=== PATIENT | female | born 1990 | race Caucasian/White ===

== ENCOUNTER 2023-12-12 22:18 | Emergency (ER) | payer OTHER, SELFPAY ==
[2023-12-12 22:20] VITALS: BP 117/68; PULSE 73; RESP 18; TEMP 35.8; O2SAT 96
--- NOTE | 2023-12-12 22:24 | ED.SKABFB ---
HPI - Skin/Abscess/Foreign Bdy General Chief complaint: Skin/Abscess/Foreign Body Stated complaint: bite Time Seen by Provider: 12/12/23 22:24 Source: patient Mode of arrival: ambulatory Limitations: no limitations History of Present Illness HPI narrative: 33-year-old female presents to the ED with -- cellulitis/ boil over the left mandibular region the past 4 days. Severe pain. No drainage. Unsure as to how she got it. No fever or chills. Denied blood test MD complaint: abscess/boil Onset (ago): day(s) ( 4 days) Tetanus up to date: unsure Location: face ( left mandibular region) Severity: severe Pain Consistency: constant Relieving factors: none Exacerbating factors: none Context: none Associated symptoms: denies other symptoms Treatments prior to arrival: none Related Data Allergies Allergy/AdvReac Type Severity Reaction Status Date / Time latex Allergy Rash Verified 12/12/23 22:37 sulfamethoxazole Allergy Rash Verified 12/12/23 22:37 [From Bactrim] trimethoprim [From Bactrim] Allergy Rash Verified 12/12/23 22:37 Review of Systems Review of Systems: All systems reviewed & are unremarkable except as noted in HPI and below Constitutional: Constitutional: Reports as per HPI and Reports no additional constitutional complaints Eyes: Eyes: Reports as per HPI and Reports no additional eye complaints ENT: Reports system reviewed and no additional complaints, except as documented and Reports as per HPI Cardiovascular: Cardiovascular: Reports as per HPI and Reports no additional cardiovascular complaints Respiratory: Respiratory: Reports as per HPI and Reports no additional respiratory complaints Gastrointestinal: Gastrointestinal: Reports as per HPI and Reports no additional gastrointestinal complaints Genitourinary: Genitourinary: Reports no additional female genitourinary complaints and Reports as per HPI Musculoskeletal: Musculoskeletal: Reports no additional musculoskeletal complaints and Reports as per HPI Integumentary/Breasts: Skin/Breast: Reports system reviewed and no additional complaints, except as docu Comments: left cheek/ left face cellulitis Neurologic: Reports system reviewed and no additional complaints, except as documented and Reports as per HPI Psychiatric: Psychiatric: Reports no additional psychiatric complaints and Reports as per HPI Endocrine: Endocrine: Reports no additional endocrine complaints and Reports as per HPI Hematologic/Lymphatic: Hematologic/Lymphatic: Reports no additional hematologic/lymphatic complaints and Reports as per HPI Allergic/Immunologic: Allergic/Immunologic: Reports no additional allergic/immunologic complaints and Reports as per HPI PMFSH Social History Social History (Updated 12/12/23 @ 22:39 by Shawn Denis MD) Social History: smoker, marijuana use Exam Narrative: vitals are stable patient is very drowsy. Patient stated that she is homeless and has not slept for the past 18 hours. Const: General: no acute distress Nutritional Appearance: obese Orientation/consciousness: patient oriented x3 HENMT: Head: normal to inspection Ears: external ears normal Face/Nose/Sinus: Normal external nose present Face and sinus: normal facial exam Mouth: Yes Normal oral and palatal mucosa present Throat: posterior oropharynx normal Eyes: Conjunctivae: conjunctivae normal Pupils: Equal, round and reactive pupils present EOM: EOMs intact bilaterally Direct Ophthalmoscopy: no photophobia Neck: Neck: normal visual inspection, no lymphadenopathy and no meningeal signs Chest: Chest palpation & inspection: normal inspection of the chest Resp: Effort & Inspection: normal respiratory effort Auscultation: clear to auscultation bilaterally Cardio: Rate: regular rate Rhythm: regular rhythm GI: GI Palp: Yes Soft to palpation Auscultation: normal bowel sounds Other: No tenderness/ rigidity /rebound. : General: Yes no CVA
[2023-12-12] MEDS: CLINDAMYCIN HCL 150 MG CAP 300 MG PO (22:43)
[2023-12-12] MEDS: TETANUS,DIPHTHERIA,AC PERTUSSIS ADULT 0.5 ML (ADACEL) IM (22:43)
[2023-12-12 22:55] VITALS: BP 120/72; PULSE 78; RESP 18; O2SAT 99
--- NOTE | 2023-12-17 18:37 | PC.NURSE ---
pt calls reporting she does not have her medical card to pick remover her rx at [facility] and they cannot run her insurance without it. pt reports she would like the rx called into the [facility] in [place]. this rn calls in rx for clindamycin hcl 300mg po q 8 hours #20, no refills under dr nails, and called christa to cancel the rx. pt is aware, and is to pick remover rx.
== END 2023-12-12 22:55 | disposition home or self-care (01) ==
LOC: CHSED 22:48
PROVIDERS: Emergency Provider Internal Medicine Critical Care Medicine
DX: L03.211 Cellulitis of face (principal); Z23 Encounter for immunization
CPT/HCPCS: 90471; 90715; 99283; A9270

== ENCOUNTER 2024-01-30 02:02 | Emergency (ER) | payer OTHER, SELFPAY ==
[2024-01-30] VITALS (7 sets, daily range): BP systolic 106–121; BP diastolic 61–71; PULSE 52–72; RESP 10–14; TEMP 36.6–37; O2SAT 96–100
--- NOTE | ~2024-01-30 | XR_ITS ---
Left Hand Technique: PA, oblique, and lateral views were obtained. Clinical History: Fifth digit injury Findings: No acute fracture or dislocation is seen. Osseous alignment is anatomic. Joint spaces are p reserved. Soft tissues are unremarkable. Impression: Unremarkable left hand. Reviewed, dictated and finalized at location . Impression: Unremarkable left hand.
--- NOTE | ~2024-01-30 | CT_ITS ---
Clinical Indication: Injury CT Scan of the Chest, Abdomen, and Pelvis with Contrast: Technique: Contiguous sections were acquired throughout the chest, abdomen, and pelvis after intraven ous administration of 100 cc of Omnipaque 350. Dose reduction technique was used on this scan by aissatou nguyen automated exposure control and iterative reconstruction technique. The dose-length product (DL P) was 1637.36 mGy-cm. Findings: There is no evidence of any significant mediastinal, hilar or axillary lymphadenopathy. The mediastin al soft tissues appear normal. There is no evidence of pleural or pericardial effusion. The lungs are clear, aside from mild dependent hypoventilatory changes. The liver, spleen, pancreas, adrenals and kidneys are within normal limits.. Cholecystectomy clips ar e present. No evidence of aortic aneurysm. No lymphadenopathy. No bowel obstruction or bowel wall thickening. There is no evidence to suggest acute appendicitis. Urinary bladder is unremarkable. No pelvic mass seen. Status post hysterectomy. No ascites. No acute fracture evident. Impression: No significant abnormalities seen. Reviewed, dictated and finalized at [facility]. Impression: No significant abnormalities seen.
--- NOTE | ~2024-01-30 | CT_ITS ---
Non-contrast Head CT History: Injury Technique: Axial non-contrast imaging of the brain was performed. Dose reduction technique was used on this scan by utilizing automated exposure control and iterative reconstruction technique. The dose -length product (DLP) was 681.00 mGy-cm. Findings: There is no evidence of intracranial hemorrhage, mass lesion, or acute infarct. Brain par enchyma appears normal. The ventricles and subarachnoid spaces are normal in size. The calvarium ap pears normal. The visualized paranasal sinuses and mastoid air cells are clear. Impression: No significant abnormality seen. Reviewed, dictated and finalized at location . Impression: No significant abnormality seen.
--- NOTE | ~2024-01-30 | CT_ITS ---
Noncontrast CT scan of the cervical spine Technique: Multiple contiguous axial [address] images of the cervical spine were obtained and rec onstructed in 2D sagittal and coronal planes on the acquisition scanner. Dose reduction technique was used on this scan by utilizing automated exposure control, adjustment of the mA and/or kV according to patient size. The dose-length product (DLP) was 429.09 mGy-cm. Clinical History: Pain Findings: No fractures or dislocations. Unremarkable visualized bony structures. The intervertebral disc spaces are preserved. No prevertebral soft tissue swelling. Impression: No fracture or subluxation of the cervical spine. Reviewed, dictated and finalized at location M. Impression: No fracture or subluxation of the cervical spine.
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
[2024-01-30 02:47] LABS: Hematocrit 41.7 % (35.0-49.0); Hemoglobin 13.1 g/dL (12.0-15.0); Mean Corpuscular HGB Conc 31.4 g/dL (32-36); Mean Corpuscular Hemoglobin 29.5 pg (27.0-31.0); Mean Corpuscular Volume 93.9 fL (78.0-102.0); Mean Platelet Volume 9.7 fl (9.2-11.8); Platelet Count Result 342 K/mm3 (150-420); Red Blood Count 4.44 M/mm3 (4.20-5.40); Red Cell Distribution Width 13.4 % (11.6-14.4); White Blood Count 7.5 K/mm3 (4.8-10.8)
[2024-01-30 03:00] LABS: Alanine Aminotransferase 24 U/L (14-59); Albumin Level 3.2 g/dL (3.4-5.0); Alkaline Phosphatase 62 U/L (46-116); Anion Gap 3 mmol/L (4-12); Aspartate Amino Transferase 15 U/L (15-37); Bilirubin,Total 0.3 mg/dL (0.00-1.00); Blood Urea Nitrogen 20 mg/dL (7-18); Carbon Dioxide 34 mmol/L (21-32); Chloride 102 mmol/L (98-108); Estimated CRCL calculation 119 ml/min; Estimated Glomerular Filt Rate > 60; Glucose 87 mg/dL (70-99); Osmolality Calculated 289 mOsm/kg (285-295); Potassium 3.8 mmol/L (3.5-5.1); Sodium 139 mmol/L (136-145); Total Protein 7.1 g/dL (6.4-8.2)
[2024-01-30] MEDS: SODIUM CHLORIDE 0.9% IV 1,000 ML 999 ML IV CONT (03:00)
[2024-01-30 03:01] LABS: Ethanol < 3 mg/dL (0-6)
[2024-01-30 03:02] LABS: Troponin I < 4.0 ng/L (0.00-60.4)
[2024-01-30 03:03] LABS: INR 0.9; Prothrombin Time 10.3 Seconds (9.50-12.1)
--- NOTE | 2024-01-30 03:05 | ECG_ITS ---
Test Date: 2024-01-30 03:09:54 Measurements Intervals [place] Rate: 54 P: -3 TX: 172 QRS: 84 QRSD: 114 T: 63 QT: 471 QTc: 447 Interpretive Statements SINUS BRADYCARDIA MODERATE INTRAVENTRICULAR CONDUCTION DELAY [110+ ms QRS DURATION] ABNORMAL ECG No previous ECG available for comparison Electronically Signed On 01-30-2024 13:52:36 CDT by Abbe Bolanos M.D.
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
[2024-01-30] MEDS: TETANUS,DIPHTHERIA,AC PERTUSSIS ADULT 0.5 ML (ADACEL) IM (04:15)
--- NOTE | 2024-01-30 04:39 | PC.NURSE ---
Per ERP request, got pt up to walk. She walked fine. Stated that she was a little dizzy.
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
--- NOTE | 2024-01-30 12:16 | PC.NURSE ---
per doctor jaqui pt is to follow up with ortho or her family physician attempted to contact pt x 2 pts phone not accepting calls
--- NOTE | 2024-01-30 12:26 | PC.NURSE ---
left message with pts father to call back to ER
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
== END 2024-01-30 05:00 | disposition home or self-care (01) ==
PROVIDERS: Emergency Provider Emergency Medicine
DX: T14.90XA Injury, unspecified, initial encounter (principal); Z59.00 Homelessness unspecified; Z23 Encounter for immunization; V03.90XA Pedestrian on foot injured in collision with car, pick-up truck or van, unspecified whether traffic or nontraffic accident, initial encounter
CPT/HCPCS: 36415; 70450; 71260; 72125; 73080; 73130; 74177; 80053; 80307; 84484; 85027; 85610; 85730; 90471; 90715; 93005; 96360; 99284; J7030; L0150; Q9967

== ENCOUNTER 2024-03-08 21:21 | Emergency (ER) | payer OTHER, SELFPAY ==
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
[2024-03-08 21:23] VITALS: BP 153/94; PULSE 84; RESP 18; TEMP 36.9; O2SAT 100
--- NOTE | 2024-03-08 21:30 | PC.NURSE ---
Dr Tam at the bedside
[2024-03-08] MEDS: KETOROLAC (*BKC) 60 MG/2 ML VIAL IM (21:36)
--- NOTE | 2024-03-08 21:40 | PC.NURSE ---
patient transported to ct via stretcher. warm blanket was given
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
--- NOTE | 2024-03-08 22:02 | PC.NURSE ---
patient returned to room from ct via stretcher
[2024-03-08 22:30] VITALS: BP 140/88; PULSE 82; RESP 18; O2SAT 100
== END 2024-03-08 22:30 | disposition home or self-care (01) ==
PROVIDERS: Emergency Provider Emergency Medicine
DX: M54.32 Sciatica, left side (principal); S16.1XXA Strain of muscle, fascia and tendon at neck level, initial encounter; Y04.2XXA Assault by strike against or bumped into by another person, initial encounter
CPT/HCPCS: 70450; 72125; 72128; 72131; 96372; 99284; J1885

== ENCOUNTER 2024-07-31 22:03 | Emergency (ER) | payer OTHER, SELFPAY ==
--- NOTE | ~2024-07-31 | XR_ITS ---
EXAM: XR finger 4th LT min 2V DATE: 07/31/2024 22:36 HISTORY: LEFT 4TH DIGIT SMASH injury WITH BLISTER FORMATION . COMPARISON: 01/30/2024. FINDINGS: Normal mineralization. No fracture or dislocation. No lytic or blastic lesion. Minimal sca ttered degenerative changes. No erosion or periosteal change. Soft tissue swelling over the left four th digit, particularly over the DIP and nailbed, without subcutaneous gas or radiopaque foreign body. IMPRESSION: No acute osseous finding in the left hand. Marked soft tissue swelling over the left digi t. Reviewed, dictated and finalized at location K. IMPRESSION: No acute osseous finding in the left hand. Marked soft tissue swell ing over the left digit.
[2024-07-31 22:09] VITALS: BP 128/74; PULSE 70; RESP 18; TEMP 36.6; O2SAT 98
--- OUTSIDE RECORDS SUMMARY | 2024-07-31 22:09 | XMS_ITS | Clinical Summary ---
Author Organization [facility] Address [address] [place] [address] Phone Care Team Providers Care Wage And Salary Administrator Name Role Phone Provider, Unknown Primary Care Provider Unavaila ble Allergies Active Allergy Reactions Criticality Noted Date Comments Sulfamethoxazole-Trimethoprim Hives 2017 Latex Hives 02/06/2018 Medications buPROPion (WELLBUTRIN) 100 MG Tablet 01/26/2018 Active buPROPion (WELLBUTRIN) 150 MG XL tablet 01/26/2018 Active clonazePAM (KLONOPIN) 1 MG Tablet 3 01/26/2018 Active cyclobenzaprine (FLEXERIL) 10 MG Tablet 02/01/2018 Active FLUoxetine (PROZAC) 20 MG Capsule 12/27/2017 Active gabapentin (NEURONTIN) 300 MG Capsule 01/11/2018 Active HYDROcodone-acet aminophen (NORCO) 5-325 MG Tablet 0 02/01/2018 Active prazosin (MINIPRESS) 1 MG Capsule 12/27/2017 Active RaNITIdine HCl 300 MG Capsule Take by mouth 2 times daily. Active Social History Tobacco Use Types Packs/Day Years Used Date Smoking Tobacco: Every Day Cigarettes Smokeless Tobacco: Never Alcohol Use Standard Drinks/Week Comments No 0 (1 standard drink = 0.6 oz pur e alcohol) Comments No Sex and Gender Information Value Date Recorded Sex Assigned at Not on file Legal Sex Female 3:56 PM CDT Gender Identity Not on file Sexual Orientation Not on file Last Filed Vital Signs Vital Sign Reading Time Taken Comments Blood Pressure 128/92 02/06/2018 1:11 PM CDT Pulse 84 02/06/2018 1:11 PM CDT Temperature - - Respiratory Rate 20 02/06/2018 1:11 PM CDT Oxygen Saturation 97% 02/06/2018 1:11 PM CDT Inhaled Oxygen Concentration - - Weight 146.5 kg (323 lb) 02/06/2018 1:11 PM CDT Height 167.6 cm (5' 6 ) 02/06/2018 1:11 PM CDT Body Mass Index 52.13 02/06/2018 1:11 PM CDT Plan of Treatment Health Maintenance Due Date Last Done Comments Hepatitis C Virus (HCV) Screening 1990 Influenza Immunization (#1) 2023 SARS-COV-2 Immunization ( season) 2023 Respiratory Syncytial Virus (RSV) Immunization (Adult) (1 - 1-dose 75+ series) 2065 Hepatitis B Immunization Completed 999, 12/29/1997, 12/01/1997 DTaP/Tdap/Td Immunization Discontinued 2013, 11/08/2004, 10/30/1994, Additional history exists TdaP Immunization Completed 09/10/2013 Meningococcal Immunization (ACWY) Aged Out No longer eligible based on patient's age to complete this topic Pneumococcal Immunization Combined Aged Out No longer eligible based on patient's age to complete this topic Rotavirus Immunization Aged Out No lo nger eligible based on patient's age to complete this topic Insurance MEDICAID AETNA [facility] Care Teams Wage And Salary Administrator Relationship Specialty Start Date End Date Provider, Unknown UNKNOWN PCP - General 02/06/18
--- NOTE | 2024-07-31 22:17 | ED_ITS ---
HPI - Extremity Injury (Upper) General Chief Complaint: Extremity Injury, Upper Stated Complaint: wound Time Seen by Provider: 07/31/24 22:17 Source: patient Mode of arrival: ambulatory Limitations: no limitations History of Present Illness HPI narrative: this is a 34-year-old female who presents with injury to her left 4th finger while changing a tire and has a a blood blister on the all left 4th finger has tenderness and limited range of motion secondary to swelling. complaint: injury to: left Onset (ago): hour(s) Other Extremity Injury: Left: fingers ( 4th finger with injury and a blister) Handedness: right Place: outdoors Severity: moderate Severity scale (1-10): 6 Related Data Allergies Allergy/AdvReac Type Severity Reaction Status Date / Time latex Allergy Rash Verified 07/31/24 22:58 sulfamethoxazole (From Allergy Rash Verified 07/31/24 22:58 Bactrim) trimethoprim (From Bactrim) Allergy Rash Verified 07/31/24 22:58 Review of Systems Review of Systems: All systems reviewed & are unremarkable except as noted in HPI and below PMFSH Past Medical History Medical History Sciatica of left side Social History Social History Social History: smoker, marijuana use Exam Const: General: healthy appearing and no acute distress Nutritional Appearance: well nourished and obese Orientation/consciousness: patient oriented x3 Limitations: no limitations Chest: Chest palpation & inspection: normal inspection of the chest Resp: Effort & Inspection: normal respiratory effort Auscultation: clear to auscultation bilaterally Cardio: Rate: regular rate Rhythm: regular rhythm GI: GI Palp: Yes Soft to palpation Skin: Wounds: wounds noted Neuro: General: patient oriented x3 Extrem: Other: Tenderness and a blood blister on the 4th left finger Course Course Emergency Course: patient received Motrin 800mg p.o., and x-ray performed and reviewed patient. Vital Signs Vital signs: Vital Signs Temperature 36.6 C 07/31/24 22:09 Pulse Rate 70 07/31/24 22:09 Respiratory Rate 18 07/31/24 22:09 Blood Pressure 128/74 07/31/24 22:09 Pulse Oximetry 98 07/31/24 22:09 Oxygen Delivery Room Air 04/03/25 22:09 Temperature 36.6 C 07/31/24 22:09 Pulse Rate 70 07/31/24 22:09 Respiratory Rate 18 07/31/24 22:09 Blood Pressure 128/74 07/31/24 22:09 Pulse Oximetry 98 07/31/24 22:09 Oxygen Delivery Room Air 07/31/24 22:09 Critical Care Time Critical Care Time Critical Care Time: No Discharge Plan Discharge Clinical Impression: Finger sprain, Blister Patient Disposition: Home, Self-Care Condition: Stable Instructions: Antibiotic Form Additional Instructions: advised to take Tylenol or Motrin as needed and follow with primary if symptoms persist or worsen. Patient Language: Croatian Prescriptions: No Action tramadol 50 mg tablet 50 mg PO Q6H PRN (Reason: pain) Qty: 20 0RF Follow-up/Referrals: UNKNOWN,DOCTOR [Non-Staff] - Time of Disposition: 22:56
[2024-07-31] MEDS: IBUPROFEN 400 MG TABLET 800 MG PO (22:36)
--- OUTSIDE RECORDS SUMMARY | 2024-07-31 22:45 | XMS_ITS | Encounter Summary ---
Author Organization [facility] Address [facility] [place] [address] Care Team Providers Care Zipper Lining Folder Name Role Phone Merle Diaz NP Primary Care Provider +1- [phone] Encounter Details Date Type Department Care Team (Late st Contact Info) Description 07/14/2020 Hospital Follow-up Call [place] [address] [place] [address] Opal Mendoza RN Social History Tobacco Use Types Packs/Day Years Used Date Smoking Tobacco: Every Day Cigarettes 0.5 20 Smokeless Tobacco: Never Alcohol Use Standard Drinks/Week Comments No 0 (1 standard drink = 0.6 oz pure alcohol) patient denies current alcohol use 08/30/18 Humiliation, Afraid, Rape, and Kick questionnair e Answer Date Recorded Fear of Current or Ex-Partner No Emotionally Abused No 06/21/2019 Physically Abused No 06/21/2019 Sexually Abused No 06/21/2019 Social Connection and Isolat ion Panel [NHANES] Answer Date Recorded Frequency of Communication w ith Friends and Family More than three times a week 06/21/2019 Frequency of Social Gatherin gs with Friends and Family Three times a week 06/21/2019 Attends [employer] Services Never 06/21 Active Member of Clubs or Organizations No 06/21/2019 Attends Club or Organization Meetings Never 06/21/2019 Marital Status 06/21/2019 AUDIT-C Answer Date Recorded Frequency of Alcohol Consumption Never 08/30/2018 Average Number of Drinks Not on file 019 Frequency of Binge Drinking Not on file 06/2018 Overall Financial Resource Strain (CARDIA) Answe r Date Recorded Difficulty of Paying Living Expenses Somewhat fonseca rd 06/21/2019 [facility] [place] of Occupat ional Health - Occupational Stress Questionnaire Answer Date Recorded Feeling of Stress Rather much 06/21/2019 Exercise Vital Sign Answer Date Recorde d Days of Exercise per Week 0 days 2019 Minutes of Exercise per Session 0 min 06/21/2019 Hunger Vital Sign Answer Date Recorded Worried About Running Out of Food in the Last Ye ar Never true 06/21/2019 Ran Out of Food in the Last Year Never true 06/21/2019 PRAPARE - Transportation Answer Date Re corded Lack of Transportation (Medical) No 06/21/2019 Lack of Transportation (Non-Medical) No 06/21/2019 Education Answer Date Recorded What is the highest level of school you have completed or the highest degree you have received? 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 No / Unsure 07/12/2020 8:18 PM CDT documented as of this encounter Functional Status * RETIRED Are you deaf or do you have serious difficulty hearing Answer Date of Assessment Author Status No 07/13/2020 12:05 AM CDT Acti ve * RETIRED Are you blind or do you have serious difficulty seeing, even when wearing glasses? Answer Date of Assessment Author Status No 07/13/2020 12:05 AM CDT Acti ve * Do you have serious difficulty walking or climbing stairs? Answer Date of Assessment Author Status No 07/13/2020 12:05 AM CDT Jocelin Fox RN Active * Do you have difficulty dressing or bathing? Answer Date of Assessment Author Status No 07/13/2020 12:05 AM LARAT Jocelin Fox RN Active * Because of a physical, mental, or emotional condition, do you have difficulty doing errands alone such as visiting a doctor's office or shopping? Answer Date of Assessment Author Status No 07/13/2020 12:05 AM LARAT Jocelin Fox RN Active documented as of this encounter Mental Status * Because of a physical, mental, or emotional condition, do you have serious difficulty concentrating, remembering, or making decisions? Answer Entry Date Author Status No 07/13/2020 12:05 AM CDT Jocelin Fox RN Active documented in this encounter Plan of Treatment Not on file documented as of this encounter Goals Goal Patient Goal Type Associated Problems Recent Progress Patient-Stated? Author Family - family caregiver with be involved in care transitions and discharge planning General On track( 021 10:46 AM CDT) No Ana Fajardo RN documented as of this encounter Visit Diagnoses Not on filedocumented in this encounter Care Teams Zipper Lining Folder Relationship Specialty Start Date End Date Merle Diaz NP PCP - General Nurse Practitioner Family 03/05/20 documented as of this encounter
--- OUTSIDE RECORDS SUMMARY | 2024-07-31 22:45 | XMS_ITS | Encounter Summary ---
Author Organization [facility] Address [facility] [place] [address] Care Team Providers Care Gis Administrator Name Role Phone Merle Diaz NP Primary Care Provider [phone]- [phone] Encounter Details Date Type Department Care Team (Late st Contact Info) Description 03/08/2020 Hospital Follow-up Call [facility] [address] [place] [address] Opal Mendoza RN Social History [...] Family Three times a week 06/21/2019 Attends [facility] Never 06/21 Active Member of Clubs [...] Paying Living Expenses Somewhat fonseca rd 06/21/2019 [facility] [place] of Occupat ional Health - Occupational Stress [...] AM CDT Legal Sex Female 9:22 PM INDUSTRIAL TECHNOLOGY EDUCATION TEACHER Gender Identity Female 08/29/2018 9:19 AM CDT Sexual Orientation Not on file COVID-19 Exposure Response Date Recorded In the last month, have you been in contact with someone who was confirmed or suspected to have Coronavirus / COVID-19? No / Unsure 03/05/2020 12:24 AM INDUSTRIAL TECHNOLOGY EDUCATION TEACHER documented as of this encounter Functional Status * RETIRED Are you deaf or do you have serious difficulty hearing Answer Date of Assessment Author Status No 03/05/2020 5:00 AM INDUSTRIAL TECHNOLOGY EDUCATION TEACHER Activ e * RETIRED Are you blind or do you have serious difficulty seeing, even when wearing glasses? Answer Date of Assessment Author Status No 03/05/2020 5:00 AM INDUSTRIAL TECHNOLOGY EDUCATION TEACHER Activ e * Do you have serious difficulty walking or climbing stairs? Answer Date of Assessment Author Status No 03/05/2020 5:00 AM INDUSTRIAL TECHNOLOGY EDUCATION TEACHER Cherise Cardenas RN Active * Do you have difficulty dressing or bathing? Answer Date of Assessment Author Status No 03/05/2020 5:00 AM Cherise Vásquez RN Active * Because of a physical, mental, or emotional condition, do you have difficulty doing errands alone such as visiting a doctor's office or shopping? Answer Date of Assessment Author Status No 03/05/2020 5:00 AM Cherise Vásquez RN Active documented as of this encounter Mental Status * Because of a physical, mental, or emotional condition, do you have serious difficulty concentrating, remembering, or making decisions? Answer Entry Date Author Status No 03/05/2020 5:00 AM Cherise Vásquez RN Active documented in this encounter Plan of Treatment Not on file documented as of this encounter Visit Diagnoses Not on filedocumented in this encounter Care Teams Gis Administrator Relationship Specialty Start Date End Date Merle Diaz NP PCP - General Nurse Practitioner Family 03/05/20 documented as of this encounter
--- OUTSIDE RECORDS SUMMARY | 2024-07-31 22:45 | XMS_ITS | Clinical Summary ---
Author Organization [facility] Address [facility] [place] [address] Care Team Providers Care Customer Service Clerk Name Role Phone Merle Diaz NP Primary Care Provider [phone]- [phone] Allergies Active Allergy Reactions Criticality Noted Date Comments Latex Hives,Rash Low 12/26/2020 Pecan Nut (Diagnostic) Throat swelling High 12/27/19 21 Sulfamethoxazole-Trimethoprim Hives Medium 2020 Trimethoprim Hives Medium 12/26/2020 [place] ([place]) Throat swelling High 12/26/2020 Medications clonazePAM 1 MG tablet Take 1 mg by mouth 3 (three) times a day. Active buPROPion XL 300 MG 24 hr tablet 04/01/2021 Active prazosin 2 MG capsule Take 4 mg by mouth nightly at bedtime. 04/01/2021 Active Active Problems Problem Noted Date Diagnosed Date Fecal impaction ([facility]) 03/05/2020 Carpal tunnel syndrome, bilateral upper limbs Constipation 06/21/2019 Chronic GERD 01/23/2019 Blood in stool 01/23/2019 Oropharyngeal dysphagia 01/23/2019 Hidradenitis suppurativa 09/24/2018 Asthma ([facility]) 08/29/2018 History of GI bleed 08/29/2018 Psoriasis 08/29/2018 Anemia 08/29/2018 Anxiety and depression 08/29/2018 Hyperactivity disorder 08/29/2018 Bipolar disorder ([facility]) 08/29/2018 Body image disturbance 08/29/2018 Schizophrenia ([facility]) 08/29/2018 History of suicidal ideation 08/29/2018 Resolved Problems Problem Noted Date Diagnosed Date Resolved Date Encounter for screening colonoscopy 06/11/2019 06/19/2019 Overview (06/11/2019): Added automatically from request for surgery [id number] Chronic bacterial skin infection 08/30/2018 10/02/2018 Right foot pain 12/07/2016 08/29/2018 Encounter for preventive health examination 12/06/2016 08/29/2018 Immunizations Name Administration Dates Next Due Afluria 36 MONTHS+ (Prefille d Syringe IIV4) 06/24/2019,06/22/2019() Dtp 10/30/1994, 3,09/30/1991, 991,1990 Fluzone 6 Months+ Quad (0.5 mL Prefilled Syringe) 03/06/2020 HPV4 (Gardasil) 07/07/2008,05/07/2008 Hepatitis A (Generic) 07/07/2008 Hepatitis B Pediatric 06/22/1998,12/29/1997,07/1997 Hib 11/02/1992,09/30/1991,01/03/1991 MMR 10/30/1994,09/30/1991 Opv 10/30/1994, 3,09/30/1991, 991,1990 Td 11/08/2004 Tdap (Generic) 10/31/2020,05/06/2019,09/10/2013 Family History Medical History Relation Comments Cancer Father Diabetes Father Heart Disease Father Hypertension Father Hyperlipidemia Maternal Grandfather Hyperlipidemia Maternal Grandmother Diabetes Maternal Uncle Cancer Mother FMH of cancer Mother Heart Disease Mother Hypertension Mother Hyperlipidemia Paternal Grandfather Hyperlipidemia Paternal Grandmother Relation Status Comments Father Maternal Grandfather Maternal Grandmother Maternal Uncle Mother Paternal Grandfather Paternal Grandmother Social History Tobacco Use Types Packs/Day Years Used Date Smoking Tobacco: Every Day Cigarettes 0.5 20 Smokeless Tobacco: Never Tobacco Cessation:Ready to Q uit: No Alcohol Use Standard Drinks/Week Comments No 0 (1 standard drink = 0.6 oz pur e alcohol) Humiliation, Afraid, Rape, and Kick questionnair e [...] Family Three times a week 06/21/2019 Attends [employer] Services Never 06/21 Active Member of Clubs [...] Paying Living Expenses Somewhat fonseca rd 06/21/2019 [facility] [place] of Occupat ional Health - Occupational Stress [...] AM CDT 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 Gender Identity Female 08/29/2018 9:19 AM CDT Sexual Orientation Not on file Last Filed Vital Signs Vital Sign Reading Time Taken Comments Blood Pressure 118/74 05/05/2021 2:25 PM SUGAR TRUCKER Pulse 68 05/05/2021 2:25 PM SUGAR TRUCKER Temperature 37.4 C (99.3 F) 05/04/2021 10:46 PM SUGAR TRUCKER Respiratory Rate 19 05/05/2021 2:25 PM SUGAR TRUCKER Oxygen Saturation 99% 05/05/2021 2:25 PM SUGAR TRUCKER Inhaled Oxygen Concentration - - Weight 109.9 kg (242 lb 4.6 oz) 022 10:46 PM SUGAR TRUCKER Height 167.6 cm (5' 6 ) 05/04/2021 10:4 6 PM SUGAR TRUCKER Body Mass Index 39.11 05/04/2021 10:46 PM SUGAR TRUCKER Plan of Treatment Health Maintenance Due Date Last Done Comments Annual Physical 1993 Pneumococcal Vaccine: Pediatrics (0 to 5 Years) and At-Risk Patients (6 to 64 Years) (1 of 2 - PCV) 1996 Hepatitis C 2008 HPV Vaccines (3 - 3-dose series) 11/04/2008 07/07/2008, 05/07/2008 COVID-19 Vaccine (1 - 2023- season) 2023 Influenza Adult (#1) 2024 03/06/2020, 06/24/19 DTaP, Tdap and Td Vaccines (5 - Td or Tdap) 10/31/2030 10/31/2020, 05/06/2019, 09/10/2013, Additional history exists Hepatitis B Vaccines Completed 06/22/1998, 12/29/1997, 12/01/1997 Meningococcal B Vaccine Aged Out No l onger eligible based on patient's age to complete this topic Meningococcal Vaccine Aged Out No rolando tiana eligible based on patient's age to complete this topic RSV Immunizations Under 20 Months Aged Out No longer eligible based on patient's age to complete this topic Goals Goal Patient Goal Type Associated Problems Recent Progress Patient-Stated? Author Family - family caregiver with be involved in care transitions and discharge planning General On track( 021 10:46 AM CDT) No Ana Fajardo, RN Insurance [facility] Advance Directives Documents on File Type Date Recorded Patient Sales Operations Consultant Expl anation Advance Directives and Living Will 01/25/2019 7:37 AM 11/06/14 [place]A FOR HEALTHCARE Advance Directives and Living Will 12/13/2016 POWER OF RN IMAGING FO R HEALTH CARE Advance Directives and Living Will 12/13/2016 SHORT FORM POWER OF RN IMAGING Advance Directives and Living Will 11/06/2014 POWER OF RN IMAGING FO R HEALTH CARE Advance Directives and Living Will 11/06/2014 SHORT FORM POWER OF RN IMAGING * Full Code (Latest Code Status on File) Date Activated Date Inactivated Comments 03/05/2020 5:31 AM 03/06/2020 3:23 PM * Full Code Date Activated Date Inactivated Comments 06/21/2019 11:11 PM 06/25/2019 11:26 AM Care Teams Customer Service Clerk Relationship Specialty Start Date End Date Merle Diaz NP PCP - General Nurse Practitioner Family 03/05/20
--- OUTSIDE RECORDS SUMMARY | 2024-07-31 22:45 | XMS_ITS | Clinical Summary ---
Author Organization [facility] Address [address] [place] [address] Phone Care Team Providers Care Social Media Analyst Name Role Phone Provider, Unknown Primary Care [...] to complete this topic Insurance MEDICAID AETNA [facility] Care Teams Social Media Analyst Relationship Specialty Start Date End Date Provider, Unknown UNKNOWN PCP - General 02/06/18
--- OUTSIDE RECORDS SUMMARY | 2024-07-31 22:45 | XMS_ITS | Encounter Summary ---
Author Organization [facility] Address [address] [place] [address] Care Team Providers Care Software Applications Specialist Name Role Phone Abelardo Sinclair MD Primary Care Provider [phone]- [phone] Rashi Martínez MD Primary Care Provider [phone] Merle Diaz NP Primary Care Provider + [phone] Encounter Details Date Type Department Care Team (Late st Contact Info) Description 10/05/2018 Abstract [facility] [address] [place] [address] , Anjali Harrington MD Social History Tobacco Use Types Packs/Day Years Used Date Smoking Tobacco: Every Day Cigarettes Smokeless Tobacco: Never Alcohol Use Standard Drinks/Week Comments No 0 (1 standard drink = 0.6 oz pure alcohol) patient denies current alcohol use 08/30/18 AUDIT-C Answer Date Recorded Frequency of Alcohol Consumption Never 08/30/2018 Average Number of Drinks Not on file 019 Frequency of Binge Drinking Not on file 06/2018 Comments Unknown Sex and Gender Information Value Date Recorded Sex Assigned at Female 08/29/2018 9:19 AM CDT Legal Sex Female 9:22 PM FLY MAKER Gender Identity Female 08/29/2018 9:19 AM CDT Sexual Orientation Not on file documented as of this encounter Plan of Treatment Not on file documented as of this encounter Visit Diagnoses Not on filedocumented in this encounter Care Teams Software Applications Specialist Relationship Specialty Start Date End Date Abelardo Sinclair MD PCP - General INTERNAL MEDICINE 08/29/18 06/01/19 Rashi Martínez MD PCP - General FAMILY PRACTICE 06/02/19 03/04/20 Merle Diaz NP PCP - General Nurse Practitioner Family 03/05/20 documented as of this encounter
--- OUTSIDE RECORDS SUMMARY | 2024-07-31 22:45 | XMS_ITS | Encounter Summary ---
Author Organization [facility] Address [facility] [place] [address] Care Team Providers Care Pulverizer Name Role Phone Abelardo Sinclair MD Primary Care Provider [phone]- [phone] Rashi Martínez MD Primary Care Provider [phone] Merle Diaz NP Primary Care Provider + [phone] Encounter Details Date Type Department Care Team (Late st Contact Info) Description 07/14/2017 Abstract [facility] [address] [place] [address] , Generic MD Len Social History Tobacco Use Types Packs/Day Years Used Date Smoking Tobacco: Never Assessed Comments Unknown Sex and Gender Information Value Date Recorded Sex Assigned at Female 08/29/2018 9:19 AM CDT Legal Sex 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
== END 2024-07-31 23:09 | disposition home or self-care (01) ==
LOC: CHSED 22:43
PROVIDERS: Emergency Provider Emergency Medicine; PCP Family Medicine
DX: S63.615A Unspecified sprain of left ring finger, initial encounter (principal)
CPT/HCPCS: 73140; 99283; A9270

== ENCOUNTER 2024-10-27 02:38 | Emergency (ER) | payer OTHER, SELFPAY ==
[2024-10-27] VITALS (31 sets, daily range): BP systolic 101–130; BP diastolic 56–99; PULSE 46–82; RESP 7–21; TEMP 36.2–36.7; O2SAT 89–100
--- NOTE | ~2024-10-27 | XR_ITS ---
AP and lateral views of the right tibia/fibula Clinical History: Wound Findings: No acute fracture or dislocation is seen. Osseous alignment is anatomic. Joint spaces are p reserved without significant erosive or degenerative change. Soft tissues are unremarkable. Impression: Unremarkable right tib-fib radiographs. Reviewed, dictated and finalized at [facility]. Impression: Unremarkable right tib-fib radiographs.
--- NOTE | 2024-10-27 02:53 | ED_ITS ---
HPI - Skin/Abscess/Foreign Bdy General Chief complaint: Skin/Abscess/Foreign Body Stated complaint: skin issues/possible overdose Time Seen by Provider: 10/27/24 02:50 Source: patient and family Mode of arrival: ambulatory Limitations: clinical condition ( Patient acutely intoxicated with fentanyl per history; patient used in the last 30 minutes) History of Present Illness HPI narrative: patient is a 34-year-old female with a right lower extremity wound from IV drug use and a spider bite over the past 2 weeks. She has pain from this area. There is oozing from the area. Some bleeding. No fever or chills. She had been seen in another facility in the ER and they gave her clindamycin and she went home. She failed the clindamycin. Acutely, the patient presents intoxicated with fentanyl and having trouble keeping awake at this time. Friend is present. She said she recently used fentanyl in the past 30 minutes. She sniffs or injects fentanyl. She also uses meth. MD complaint: lesion ( Right lower extremity) Onset (ago): week(s) (2) Tetanus up to date: yes ( patient got a tetanus booster in the past week when she went to the other clinic) Location: [facility] Severity: severe Severity scale (1-10): 8 Quality: sharp Pain Consistency: constant Relieving factors: none Exacerbating factors: palpation and movement Context: IVDA Associated symptoms: denies other symptoms Treatments prior to arrival: other ( patient was on clindamycin without change) Related Data Allergies Allergy/AdvReac Type Severity Reaction Status Date / Time latex Allergy Rash Verified 10/27/24 03:18 sulfamethoxazole (From Allergy Rash Verified 10/27/24 03:18 Bactrim) trimethoprim (From Bactrim) Allergy Rash Verified 10/27/24 03:18 Review of Systems 2 Review of Systems: All systems reviewed & are unremarkable except as noted in HPI and below Constitutional: Constitutional: Reports no additional constitutional complaints Eyes: Eyes: Reports no additional eye complaints ENT: Reports system reviewed and no additional complaints, except as documented Cardiovascular: Cardiovascular: Reports no additional cardiovascular complaints Respiratory: Respiratory: Reports no additional respiratory complaints Gastrointestinal: Gastrointestinal: Reports no additional gastrointestinal complaints Genitourinary: Genitourinary: Reports no additional female genitourinary complaints Musculoskeletal: Musculoskeletal: Reports no additional musculoskeletal complaints Integumentary/Breasts: Skin/Breast: Reports system reviewed and no additional complaints, except as docu Neurologic: Reports system reviewed and no additional complaints, except as documented Psychiatric: Psychiatric: Reports no additional psychiatric complaints Endocrine: Endocrine: Reports no additional endocrine complaints Hematologic/Lymphatic: Hematologic/Lymphatic: Reports no additional hematologic/lymphatic complaints Allergic/Immunologic: Allergic/Immunologic: Reports no additional allergic/immunologic complaints PMFSH Past Medical History Medical History Sciatica of left side Social History Social History Social History: smoker, marijuana use Exam 2 Const: General: confusion and ill appearing Nutritional Appearance: well nourished Limitations: other limitations ( patient is acutely intoxicated with fentanyl; she used last 30 minutes ago) Other: patient was given Narcan with good results; patient was monitored closely thereafter HENMT: Head: normal to inspection Ears: external ears normal F lesly/Nose/Sinus: Normal external nose present Eyes: Conjunctivae: conjunctivae normal Pupils: Equal, round and reactive pupils present EOM: EOMs intact bilaterally Neck: Neck: normal visual inspection Chest: Chest palpation & inspection: normal inspection of the chest Resp: Effort & Inspection: normal respiratory effort and not labored A uscultation: clear to auscultation bilaterally and no crackles Cardio: Rate: regular rate Rhythm: regular rhythm Heart sounds: no murmurs GI: Inspection: non-distended GI Palp: Yes Soft to palpation and No Tenderness to palpation present (GI) Auscultation: normal bowel sounds : General: Yes bladder normal to palpation Back/Spine/Pelvis: Back: no CVA tenderness Skin: General skin exam: normal color Rashes: no rashes Wounds: wound noted and wounds noted Other: patient has a right lower extremity mid shaft anterior wound at 3 cm circular in nature with subcutaneous tissue seen and some necrotic tissue with serosanguineous fluid; culture was taken Neuro: General: moves all extremities, no meningeal signs and no focal motor deficits Speech: Abnormal speech present slurred Extrem: General: abnormal to inspection ( see skin exam) Psych: Affect: normal affect Attitude: cooperative Other: patient acutely intoxicated with fentanyl per history and altered mental status which cleared and resolved upon Narcan use; no suicide or homicide ideations; patient was not trying to overdose Course Vital Signs Vital signs: Vital Signs Temperature 36.6 C 10/27/24 02:38 Pulse Rate 58 L 10/27/24 02:38 Respiratory Rate 16 10/27/24 02:38 Blood Pressure 119/74 10/27/24 02:38 Pulse Oximetry 89 L 10/27/24 02:38 Oxygen Delivery Room Air 10/27/24 02:38 Temperature 36.6 C 10/27/24 02:38 Pulse Rate 56 L 10/27/24 04:15 Respiratory Rate 8 L 10/27/24 04:15 Blood Pressure 104/68 10/27/24 04:15 Pulse Oximetry 96 10/27/24 04:15 Oxygen Delivery Room Air 10/27/24 04:15 MDM - Skin/Abscess/Foreign Bdy MDM Narrative Medical decision making narrative: patient is a 34-year-old female with a right lower extremity wound and over sedated with recreational fentanyl. Narcan was done 1st to protect airway; O2 as needed; septic workup and x-ray of the lower extremity. We will start Zosyn and vancomycin for broad-spectrum coverage due to the nature of the wound. She will need to be transferred for higher level medical admission. Most likely Suboxone needed. Lab Data Attestation: I reviewed the patient's lab results. 10/27/24 04:03 10/27/24 04:03 Labs: Lab Results 10/27/24 10/27/24 Range/Units 03:12 04:03 WBC 6.2 (4.8-10.8) K/mm3 RBC 4.42 (4.20-5.40) M/mm3 Hgb 12.9 (12.0-15.0) g/dL Hct 41.8 (35.0-49.0) % MCV 94.6 (78.0-102.0) fL MCH 29.2 (27.0-31.0) pg MCHC 30.9 L (32-36) g/dL RDW 13.5 (11.6-14.4) % Plt Count 189 (150-420) K/mm3 MPV 11.1 (9.2-11.8) fl Immature Gran % (Auto) 0.3 H (0.0-0.0) % Neut % (Auto) 45.1 L (50.0-70.0) % Lymph % (Auto) 44.8 H (18.0-42.0) % Bremer % (Auto) 7.6 (2.0-11.0) % Eos % (Auto) 1.6 (1.0-6.0) % Baso % (Auto) 0.6 (0.0-1.0) % Lymph # (Auto) 2.78 (1.10-4.50) K/mm3 Bremer # (Auto) 0.47 (0.10-0.90) K/mm3 Eos # (Auto) 0.10 (0.02-0.50) K/mm3 Baso # (Auto) 0.04 (0.00-0.10) K/mm3 Abs Immat Gran (auto) 0.02 H (0.00-0.00) K/mm3 Absolute Neuts (auto) 2.79 (1.70-7.20) K/mm3 Absolute Nucleated RBC 0.00 (0.00-0.00) K/mm3 Nucleated RBC % 0.0 (0-0.0) % Sodium 140 (137-145) mmol/L Potassium 3.1 L (3.4-5.0) mmol/L Chloride 110 H (98-107) mmol/L Carbon Dioxide 24 (22-30) mmol/L Anion Gap 6 (4-12) mmol/L BUN 16 (7-17) mg/dL Creatinine 0.60 L (0.7-1.0) mg/dL Estim Creat Clear Calc 130 ml/min Estimated GFR > 60 (59 - ) Glucose 127 H (65-110) mg/dL Calculated Osmolality 293 (285-295) mOsm/kg Lactic Acid 1.1 (0.4-2.0) mmol/L Calcium 8.9 (8.4-10.2) mg/dL Total Bilirubin 0.4 (0.2-1.3) mg/dL AST 39 H (14-36) U/L ALT 65 H (6-35) U/L Alkaline Phosphatase 52 (38-126) U/L Total Protein 7.2 (6.3-8.2) g/dL Albumin 3.8 (3.5-5.1) g/dL Ethyl Alcohol < 10 (<10) mg/dL Imaging Data Attestation: I personally reviewed and interpreted this imaging study as follows: Radiologist's impression: x-ray of the right lower extremity is negative for acute osteomyelitis but positive for soft tissue swelling ECG Data EKG #1: Attestation: I personally reviewed and interpreted this ECG as follows: ECG completion date: 10/27/24 ECG completion time: 05:22 EKG Interpretation: bradycardia, sinus rhythm, no ectopy, no ST changes, normal QRS, normal QT and NL axis Discharge Plan Discharge Clinical Impression: Leg wound, right Qualifiers: Encounter type: initial encounter Qualified Code(s): S81.801A - Unspecified open wound, right lower leg, initial encounter Opioid overdose Qualifiers: Encounter type: initial encounter Injury intent: accidental or unintentional Q ualified Code(s): T40.2X1A - Poisoning by other opioids, accidental (unintentional), initial encounter Patient Disposition: Acute Care Hospital Condition: Stable Patient Language: Congolese Prescriptions: No Action tramadol 50 mg tablet 50 mg PO Q6H PRN (Reason: pain) Qty: 20 0RF Follow-up/Referrals: Murali Braden DO [Physician] - Time of Disposition: 05:04
[2024-10-27] MEDS: NALOXONE HCL INJ 2 MG/2 ML AMP NASAL (02:55)
[2024-10-27] MEDS: PIPERACILLN/TAZ 3.375GM/NS50ML 3.375 GM/50 ML BAG IVPB (04:00)
[2024-10-27 04:38] LABS: Basophils Absolute Auto 0.04 K/mm3 (0.00-0.10); Basophils Percent Auto 0.6 % (0.0-1.0); Eosinophils Percent Auto 1.6 % (1.0-6.0); Hematocrit 41.8 % (35.0-49.0); Hemoglobin 12.9 g/dL (12.0-15.0); Immature Granulocyte Absolute 0.02 K/mm3 (0.00-0.00); Immature Granulocyte Percent A 0.3 % (0.0-0.0); Lymphocytes Absolute Auto 2.78 K/mm3 (1.10-4.50); Lymphocytes Percent Auto 44.8 % (18.0-42.0); Mean Corpuscular HGB Conc 30.9 g/dL (32-36); Mean Corpuscular Hemoglobin 29.2 pg (27.0-31.0); Mean Corpuscular Volume 94.6 fL (78.0-102.0); Mean Platelet Volume 11.1 fl (9.2-11.8); Monocytes Absolute Auto 0.47 K/mm3 (0.10-0.90); Monocytes Percent Auto 7.6 % (2.0-11.0); Neutrophils Absolute Auto 2.79 K/mm3 (1.70-7.20); Neutrophils Percent Auto 45.1 % (50.0-70.0); Platelet Count Result 189 K/mm3 (150-420); Red Blood Count 4.42 M/mm3 (4.20-5.40); Red Cell Distribution Width 13.5 % (11.6-14.4); White Blood Count 6.2 K/mm3 (4.8-10.8)
[2024-10-27 04:42] LABS: Ethanol < 10 mg/dL (<10)
[2024-10-27 04:43] LABS: Lactic Acid Reflex 1.1 mmol/L (0.4-2.0)
[2024-10-27 04:49] LABS: Chloride 110 mmol/L (98-107); Potassium 3.1 mmol/L (3.4-5.0); Sodium 140 mmol/L (137-145)
[2024-10-27 04:50] LABS: Alanine Aminotransferase 65 U/L (6-35); Anion Gap 6 mmol/L (4-12); Aspartate Amino Transferase 39 U/L (14-36); Bilirubin,Total 0.4 mg/dL (0.2-1.3); Blood Urea Nitrogen 16 mg/dL (7-17); Calcium 8.9 mg/dL (8.4-10.2); Carbon Dioxide 24 mmol/L (22-30); Estimated CRCL calculation 130 ml/min; Estimated Glomerular Filt Rate > 60; Glucose 127 mg/dL (65-110); Osmolality Calculated 293 mOsm/kg (285-295)
[2024-10-27 04:51] LABS: Albumin Level 3.8 g/dL (3.5-5.1); Alkaline Phosphatase 52 U/L (38-126); Total Protein 7.2 g/dL (6.3-8.2)
--- NOTE | 2024-10-27 05:05 | ECG_ITS ---
Test Date: 2024-10-27 05:20:18 Measurements Intervals [place] Rate: 46 P: 2 AR: 187 QRS: 16 QRSD: 104 T: 24 QT: 490 QTc: 432 Interpretive Statements SINUS BRADYCARDIA BASELINE ARTIFACT- I, III, V4-V6 ABNORMAL ECG Compared to ECG 01/30/2024 03:09:54 HEART RATE HAS DECREASED Electronically Signed On 10-27-2024 06:35:01 CDT by Govind Layne D.O.
[2024-10-27] MEDS: NALOXONE HCL 0.4 MG/ML VIAL IV PUSH (05:29)
[2024-10-27] MEDS: POTASSIUM CHLORIDE 20 MEQ ER TABLET PO (05:58)
[2024-10-27] MEDS: VANCOMYCIN 1,500 MG/NS 500 ML 1,500 MG/500 ML BAG 250 MG IVPB (05:59)
--- NOTE | 2024-10-28 13:14 | PC.NURSE ---
Right lower leg wound culture preliminary results: gram stain: few, White blood cells seen, rare, mixed bacterial jacqui
--- NOTE | 2024-10-29 14:26 | PC.NURSE ---
preliminary report for rt leg wound culture reviewed. a mix of organisms of questionable significance.
--- NOTE | 2024-10-31 16:28 | PC.NURSE ---
RIGHT LOWER LEG WOUND, FINAL NO GROWTH
--- NOTE | 2024-11-02 13:41 | PC.NURSE ---
Final blood culture report; no growth after 5 days
--- NOTE | 2024-11-03 16:17 | PC.NURSE ---
FINAL REPORT FOR RIGHT LOWER LEG WOUND REVIEWED BY DR DIETZ, CONTINUE WITH ANTIBIOTICS ORDERED.
== END 2024-10-27 07:41 | disposition short-term general hospital (02) ==
PROVIDERS: Emergency Provider Emergency Medicine
DX: S81.801A Unspecified open wound, right lower leg, initial encounter (principal); T40.2X1A Poisoning by other opioids, accidental (unintentional), initial encounter; W45.8XXA Other foreign body or object entering through skin, initial encounter
CPT/HCPCS: 36415; 73590; 80053; 82077; 83605; 85025; 87040; 87070; 87075; 87147; 87205; 93005; 96365; 96366; 96368; 96375; 99285; A9270; J2310; J2543; J3370

== ENCOUNTER 2024-10-27 08:34 | Inpatient (IN) | payer OTHER, SELFPAY ==
--- NOTE | ~2024-10-27 | CT_ITS ---
EXAMINATION: CT tibia/fibula RT w con DATE: 10/27/2024 14:53 INDICATION: Cellulitis and swelling TECHNIQUE: High resolution computed tomography (CT) of the right lower leg from above the knee throug h the midfoot was performed with 100 mL Omnipaque-350 intravenous contrast. Additional sagittal and c oronal reconstructions were performed. Automated exposure control and iterative reconstruction techni que were employed. The dose-length product was 1080.79 mGy-cm. COMPARISON: Radiographs dated 10/27/2024 FINDINGS: Bone alignment is normal. No fracture. 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 Additional mild osteoarthritis at the patellofemoral compartment of the right knee with tiny marginal osteophytes. Small plantar calcaneal spur. No cortical erosions or periosteal reaction. Physiologic amount fluid in the right knee and ankle joints. Small Aguero's cyst. There is skin thick ening and mild subcutaneous edema at the medial aspect of the mid right calf consistent with cellulit is. There is suggestion of a 2 cm diameter central ulceration. No abscess. No soft tissue gas or radi opaque foreign bodies. The deeper musculature of the lower leg appears normal. IMPRESSION: 1. Focal skin thickening and underlying mild subcutaneous edema at the medial aspect of the mid right calf consistent with cellulitis with suggestion of an associated 2 cm central ulceration. No abscess , soft tissue gas or radiopaque foreign bodies. 2. Small Aguero's cyst. Reviewed, dictated and finalized at location B. IMPRESSION: 1. Focal skin thickening and underlying mild subcutaneous edema at the medial a spect of the mid right calf consistent with cellulitis with suggestion of an as sociated 2 cm central ulceration. No abscess, soft tissue gas or radiopaque for eign bodies. 2. Small Aguero's cyst.
--- NOTE | ~2024-10-27 | US_ITS ---
RIGHT LOWER EXTREMITY VENOUS ULTRASOUND Ordering provider: Estuardo Delacruz MD History: . Swelling . Comparison: None. FINDINGS: --COMMON FEMORAL: Patent and free of thrombus. Normal compressibility, phasic flow and augmentation. --PROXIMAL SUPERFICIAL FEMORAL: Patent and free of thrombus. Normal compressibility, phasic flow and augmentation. --DISTAL SUPERFICIAL FEMORAL: Patent and free of thrombus. Normal compressibility, phasic flow and au gmentation. --POPLITEAL: Patent and free of thrombus. Normal compressibility, phasic flow and augmentation. --POSTERIOR TIBIAL: Patent and free of thrombus. Normal compressibility, phasic flow and augmentation . Aguero's cyst is seen in the posterior right knee measuring 6.9 x 1.7 x 4.6 cm. IMPRESSION: Negative right lower extremity venous US. No deep vein thrombosis. Aguero's cyst Reviewed, dictated and finalized at location A.
--- NOTE | 2024-10-27 10:02 | P.HP_ITS ---
H&P: HPI History of Present Illness Date/Time: 10/27/24 10:02 Chief Complaint: Right leg wound Narrative: This is a 34-year-old female who presents to the ER with right lower leg wound. She states she injected IV drugs in them about 2 weeks ago. She started to have swelling and pain in that area which started to lose and had some bleeding. Reports no fever or chills. She went to another facility ER and was given clindamycin went home. She has been taking clindamycin however patient continued to have wound and drainage and hence presented to the outlying ER again last night. She was intoxicated with fentanyl and was difficult to keep awake. She received a dose of Narcan in the ER with improvement. She recently used fentanyl IV prior to the ED visit. She also uses meth per report. In the ED her vitals were stable afebrile her oxygenation was low initially which improved after Narcan. Laboratory workup revealed WBC of 6.2 hemoglobin 12.9 hematocrit 41.8 platelet count 189. Sodium 140 potassium 3.1 chloride 110 BUN 16 creatinine 0.6 carbon dioxide 24 blood glucose of 127 lactate was 1.1 ethyl alcohol less than 10 EKG with sinus bradycardia with no acute ST-T changes. X-ray tibia-fibula unremarkable. She received a dose of vancomycin and Zosyn and was transferred at to [facility] for further treatment. Review of Systems Review of Systems: - CONSTITUTIONAL: Denies weight loss, fe flako and chills. - HEENT: Denies changes in vision and he aring - RESPIRATORY: Denies SOB and cough. - CV: Denies palpitations and CP. - GI: Denies abdominal pain, nausea, vom iting and diarrhea. - : Denies dysuria and urinary frequen cy. - MSK: Denies myalgia and joint pain. R ight leg pain and swelling - SKIN: Denies rash and pruritus. - NEUROLOGICAL: Denies headache and sync ope. - PSYCHIATRIC: Denies recent changes in mood. Denies anxiety and depression. PMFSH Past Medical History Medical History Sciatica of left side Social History Social History Social History: smoker, marijuana use Meds Home Medications and Allergies Home Medications ?Medication ?Instructions ?Recorded ?Confirmed ?Type tramadol 50 mg tablet 50 mg PO Q6H PRN pain #20 tabs 03/08/24 Rx Allergies Allergy/AdvReac Type Severity Reaction Status Date / Time latex Allergy Rash Verified 10/27/24 03:18 sulfamethoxazole (From Allergy Rash Verified 10/27/24 03:18 Bactrim) trimethoprim (From Bactrim) Allergy Rash Verified 10/27/24 03:18 Exam Narrative: GENERAL: The patient is well developed, not in acute distress HEENT: Nonicteric sclerae, PERRLA, EOMI. Oropharynx clear. Moist mucous membranes. Conjunctivae appear well perfused. CHEST: Chest wall is nontender. HEART: Regular rate and rhythm without murmur, rubs, or gallops LUNGS: Clear to auscultation bilaterally. no respiratory distress ABDOMEN: Soft, positive bowel sounds, non-tender, no organomegaly. SKIN: No rash, no excessive bruising, petechiae, or purpura. NEUROLOGIC: Cranial nerves II-XII intact, alert and oriented x 3, no gross motor deficits EXTREMITIES: no edema, cyanosis or clubbing Right leg with ulceration in mid cox with surrounding erythema and swelling Assessment and Plan Assessment and plan (1) Leg wound, right: Qualifiers: Encounter type: initial encounter Qualified Code(s): S81.801A - Unspecified open wound, right lower leg, initial encounter Code(s): S81.801A - Unspecified open wound, right lower leg, initial encounter Status: Acute (2) Opioid overdose: Qualifiers: Encounter type: initial encounter Injury intent: accidental or unintentional Qualified Code(s): T40.2X1A - Poisoning by other opioids, accidental (unintentional), initial encounter Code(s): T40.2X1A - Poisoning by other opioids, accidental (unintentional), initial encounter Status: Acute Plan This is a 34-year-old female who presents to the ER with right lower leg wound. She states she injected IV drugs in them about 2 weeks ago. She started to have swelling and pain in that area which started to lose and had some bleeding. Reports no fever or chills. She went to another facility ER and was given clindamycin went home. She has been taking clindamycin however patient continued to have wound and drainage and hence presented to the outlying ER again last night. She was intoxicated with fentanyl and was difficult to keep awake. She received a dose of Narcan in the ER with improvement. She recently used fentanyl IV prior to the ED visit. She also uses meth per report. In the ED her vitals were stable afebrile her oxygenation was low initially which improved after Narcan. Laboratory workup revealed WBC of 6.2 hemoglobin 12.9 hematocrit 41.8 platelet count 189. Sodium 140 potassium 3.1 chloride 110 BUN 16 creatinine 0.6 carbon dioxide 24 blood glucose of 127 lactate was 1.1 ethyl alcohol less than 10 EKG with sinus bradycardia with no acute ST-T changes. X-ray tibia-fibula unremarkable. She received a dose of vancomycin and Zosyn and was transferred at to [facility] for further treatment. Right leg ulcer with surrounding cellulitis will continue vancomycin and Zosyn. Blood culture to follow will also get wound culture Wound Care to see Hypokalemia replace Psychotic disorder used to be on psych meds in the past per patient. She does not take that anymore Substance Abuse multiple with IV fentanyl meth. Counseled DVT prophylaxis Lovenox Code status full code Hospitalist [facility] Advance Care Plan I have confirmed that the patient's Advanced Care Plan is present, code status is documented, or surrogate decision maker is listed in patient medical record.: Yes Medication Reconciliation I have utilized all available resources to obtain, update and review the patients current medications (includes all prescriptions, OTC, herbals, cannabis, and nutritional supplements).: Yes
[2024-10-27 10:05] VITALS: BMI 35.7
--- NOTE | 2024-10-27 10:11 | ADMGEN ---
This patient, Saida Hicks, was admitted to [facility] Surg Room 304-02. Patient/family oriented to hospital policies and general routines including ID bracelet, bed and alarms, visiting hours, pain management, procedures, bathroom and other care routines, personal items, smoking policy, room service/diet, and visiting hours. Information on how to activate the Rapid Response Team has been discussed. Patient/Family are encouraged to report perceived risks to care and to ask questions if they do not understand what they are told or what they should do. received report from Yasihra aly [facility].
[2024-10-27 11:04] LABS: Hematocrit 41.6 % (37.0-47.0); Hemoglobin 12.8 g/dL (12.0-15.0); Immature Granulocyte Percent A 0.2 % (0-0.5); Lymphocytes Absolute Auto 2.61 K/mm3 (0.9-3.2); Mean Corpuscular HGB Conc 30.8 g/dl (32-36); Mean Corpuscular Hemoglobin 29.3 pg (26-34); Mean Corpuscular Volume 95.2 fl (80-100); Nucleated Red Blood Cells Absolute Auto 0.000 K/mm3 (0.0-0.012); Nucleated Red Blood Cells Perc 0.0 % (0.0-0.2); Platelet Count Result 214 k/mm3 (150-375); Red Blood Count 4.37 M/mm3 (4.2-5.4); White Blood Count 6.3 K/mm3 (4.5-10.0)
[2024-10-27 11:22] LABS: Alanine Aminotransferase 62 U/L (6-35); Albumin Level 3.7 g/dL (3.5-5.1); Alkaline Phosphatase 51 U/L (38-126); Anion Gap 6 mmol/L (4-12); Aspartate Amino Transferase 36 U/L (14-36); Bilirubin,Total 0.2 mg/dL (0.2-1.3); Blood Urea Nitrogen 15 mg/dL (7-17); Calcium 9.1 mg/dL (8.4-10.2); Carbon Dioxide 27 mmol/L (22-30); Chloride 106 mmol/L (98-107); Estimated CRCL calculation 136 ml/min; Estimated Glomerular Filt Rate > 60; Glucose 99 mg/dL (65-110); Magnesium 2.1 mg/dL (1.6-2.3); Potassium 3.1 mmol/L (3.4-5.0); Sodium 139 mmol/L (137-145); Total Protein 7.0 g/dL (6.3-8.2)
[2024-10-27] MEDS: PIPERACILLN/TAZ 3.375GM/NS50ML 3.375 GM/50 ML BAG IVPB ×2 (11:35→18:09)
[2024-10-27] MEDS: ENOXAPARIN 40 MG/0.4 ML SYRINGE SUB-Q (11:35)
[2024-10-27 12:06] VITALS: BP 111/70; PULSE 47; RESP 16; TEMP 36.3; O2SAT 98
[2024-10-27 12:14] LABS: Hemoglobin A1C 5.6 % (<5.7)
[2024-10-27] MEDS: POTASSIUM CHLORIDE 20 MEQ ER TABLET 40 MEQ PO (13:04)
[2024-10-27] MEDS: VANCOMYCIN 1,500 MG/NS 500 ML 1,500 MG/500 ML BAG 100 MG IVPB (13:04)
[2024-10-27 13:49] LABS: Add Urine Microscopic? YES; Appearance Urine Cloudy (Clear); Glucose Urine UA Negative (Negative); Leukocyte Esterase Ur Trace LEU/UL (Negative); Need Manual Microscopic Reviewed; Nitrate Urine Negative (Negative); Specific Grav Ur 1.032 (1.001-1.035)
[2024-10-27 14:00] VITALS: BP 114/68; PULSE 47; RESP 16; TEMP 36.7; O2SAT 93
[2024-10-27 16:00] VITALS: BP 111/76; PULSE 52; RESP 16; TEMP 36.6; O2SAT 96
[2024-10-27 19:50] VITALS: BP 113/65; PULSE 65; RESP 16; TEMP 36.7; O2SAT 100
[2024-10-27] MEDS: COLLAGENASE OINT 30 GM TUBE 1 APPLIC TOPICAL (21:00)
[2024-10-28] MEDS: PIPERACILLN/TAZ 3.375GM/NS50ML 3.375 GM/50 ML BAG IVPB ×4 (00:55→17:41)
[2024-10-28] MEDS: VANCOMYCIN 1,500 MG/NS 500 ML 1,500 MG/500 ML BAG 250 MG IVPB (01:45)
[2024-10-28 06:00] VITALS: BP 101/53; PULSE 45; RESP 20; TEMP 36.6; O2SAT 98
[2024-10-28 06:33] LABS: Hematocrit 38.1 % (37.0-47.0); Hemoglobin 11.6 g/dL (12.0-15.0); Mean Corpuscular HGB Conc 30.4 g/dl (32-36); Mean Corpuscular Hemoglobin 29.4 pg (26-34); Mean Corpuscular Volume 96.7 fl (80-100); Platelet Count Result 183 k/mm3 (150-375); Red Blood Count 3.94 M/mm3 (4.2-5.4); White Blood Count 4.7 K/mm3 (4.5-10.0)
[2024-10-28 06:44] LABS: Anion Gap 4 mmol/L (4-12); Blood Urea Nitrogen 15 mg/dL (7-17); Calcium 8.5 mg/dL (8.4-10.2); Carbon Dioxide 28 mmol/L (22-30); Chloride 106 mmol/L (98-107); Estimated CRCL calculation 120 ml/min; Estimated CRCL calculation 123 ml/min; Estimated Glomerular Filt Rate > 60; Glucose 85 mg/dL (65-110); Potassium 3.9 mmol/L (3.4-5.0); Sodium 138 mmol/L (137-145)
[2024-10-28 08:00] VITALS: BP 92/46; PULSE 65; RESP 18; TEMP 36.4; O2SAT 93
[2024-10-28] MEDS: ENOXAPARIN 40 MG/0.4 ML SYRINGE SUB-Q (09:37)
[2024-10-28] MEDS: COLLAGENASE OINT 30 GM TUBE 1 APPLIC TOPICAL ×2 (11:07→21:00)
[2024-10-28] MEDS: VANCOMYCIN 1,500 MG/NS 500 ML 1,500 MG/500 ML BAG 200 MG IVPB (13:00)
[2024-10-28 13:34] VITALS: BP 112/72; PULSE 69; RESP 16; TEMP 35.9; O2SAT 93
--- NOTE | 2024-10-28 14:18 | P.PNIM_ITS ---
Progress Note: A&P Assessment and Plan (1) Leg wound, right: Qualifiers: Encounter type: initial encounter Qualified Code(s): S81.801A - Unspecified open wound, right lower leg, initial encounter Code(s): S81.801A - Unspecified open wound, right lower leg, initial encounter Status: Acute (2) Opioid overdose: Qualifiers: Encounter type: initial encounter Injury intent: accidental or unintentional Qualified Code(s): T40.2X1A - Poisoning by other opioids, accidental (unintentional), initial encounter Code(s): T40.2X1A - Poisoning by other opioids, accidental (unintentional), initial encounter Status: Inactive Plan This is a 34-year-old female who presents to the ER with right lower leg wound. She states she injected IV drugs in them about 2 weeks ago. She started to have swelling and pain in that area which started to lose and had some bleeding. Reports no fever or chills. She went to another facility ER and was given clindamycin went home. She has been taking clindamycin however patient continued to have wound and drainage and hence presented to the outlying ER again last night. She was intoxicated with fentanyl and was difficult to keep awake. She received a dose of Narcan in the ER with improvement. She recently used fentanyl IV prior to the ED visit. She also uses meth per report. In the ED her vitals were stable afebrile her oxygenation was low initially which improved after Narcan. Laboratory workup revealed WBC of 6.2 hemoglobin 12.9 hematocrit 41.8 platelet count 189. Sodium 140 potassium 3.1 chloride 110 BUN 16 creatinine 0.6 carbon dioxide 24 blood glucose of 127 lactate was 1.1 ethyl alcohol less than 10 EKG with sinus bradycardia with no acute ST-T changes. X-ray tibia-fibula unremarkable. She received a dose of vancomycin and Zosyn and was transferred at to [facility] for further treatment. Right leg ulcer with surrounding cellulitis will continue vancomycin and Zosyn. Blood culture pending. Wound culture pending. Continue to follow. Cellulitis improving on IV antibiotics Wound Care continue Hypokalemia replaced Psychotic disorder used to be on psych meds in the past per patient. She does not take that anymore Substance Abuse multiple with IV fentanyl meth. Counseled DVT prophylaxis Lovenox Code status full code Subjective Date/time seen: 10/28/24 14:18 Interval history: Complains of pain in the leg. Feeling overall better. Redness has improved. Review of Systems Review of Systems: All systems reviewed & are unremarkable except as noted in HPI and below Exam Narrative: GENERAL: The patient is well developed, not in acute distress HEENT: Nonicteric sclerae, PERRLA, EOMI. Oropharynx clear. Moist mucous membranes. Conjunctivae appear well perfused. CHEST: Chest wall is nontender. HEART: Regular rate and rhythm without murmur, rubs, or gallops LUNGS: Clear to auscultation bilaterally. no respiratory distress ABDOMEN: Soft, positive bowel sounds, non-tender, no organomegaly. SKIN: No rash, no excessive bruising, petechiae, or purpura. NEUROLOGIC: Cranial nerves II-XII intact, alert and oriented x 3, no gross motor deficits EXTREMITIES: no edema, cyanosis or clubbing Right leg with dressing place. Redness of the leg has improved. Objective Data Vital Signs Vital Signs: Vital Signs - 24 hr 10/27/24 16:00 10/27/24 19:50 10/27/24 20:00 Temperature 97.8 F 98.1 F Pulse Rate 52 L 65 Respiratory Rate 16 16 Blood Pressure 111/76 113/65 Pulse Oximetry 96 100 Oxygen Delivery Room Air 10/28/24 06:00 10/28/24 08:00 10/28/24 08:00 Temperature 97.8 F 97.5 F L Pulse Rate 45 L 65 Respiratory Rate 20 18 Blood Pressure 101/53 L 92/46 L Pulse Oximetry 98 93 93 Oxygen Delivery Room Air 10/28/24 13:34 Temperature 96.6 F L Pulse Rate 69 Respiratory Rate 16 Blood Pressure 112/72 Pulse Oximetry 93 Oxygen Delivery Intake/Output Intake/Output: Intake & Output 10/25/24 10/26/24 10/27/24 10/28/24 23:59 23:59 23:59 23:59 Intake Total 900 1000 Output Total 400 Balance 500 1000 Meds/Results Medications: Active Medications Generic Name Dose Route Start Last Admin Trade Name Freq PRN Reason Stop Dose Admin Acetaminophen 650 mg 10/27/24 10:02 Acetaminophen 325 Mg Tablet PO Q4H PRN Mild Pain (1-3) or Fever Hydrocodone Bitart/Acetaminophen 1 tab 10/27/24 10:02 Hydrocodone/Acetaminophen (*Crx) 5-325 Mg Tablet PO Q4H PRN Moderate Pain (4-6) Al Hydrox/Mg Hydrox/Simethicone 30 ml 10/27/24 10:02 Mag Hydrox/Al Hydrox/Simeth 30 Ml Udc PO QID PRN Dyspepsia Bisacodyl 5 mg 10/27/24 10:02 Bisacodyl 5 Mg Tablet Ec PO DAILY PRN Constipation Collagenase 1 applic 10/27/24 21:00 10/28/24 11:07 Collagenase Oint 30 Gm Tube TOPICAL 1 applic Q12HR ADIEL Administration Enoxaparin Sodium 40 mg 10/27/24 11:00 10/28/24 09:37 Enoxaparin 40 Mg/0.4 Ml Syringe SUB-Q 40 mg DAILY ADIEL Administration Piperacillin/Tazobactam/Dextrose 3.375 gm in 50 mls @ 100 mls/hr 10/27/24 12:00 10/28/24 11:07 Zosyn 3.375 Gm/Ns 50 Ml IVPB 100 mls/hr Q6HR ADIEL Administration Vancomycin HCl 1,500 mg in 500 mls @ 250 mls/hr 10/27/24 13:00 10/28/24 13:00 Vancomycin 1,500 Mg/Ns 500 Ml IVPB 200 mls/hr Q12H ADIEL Administration Ibuprofen 400 mg 10/27/24 10:02 Ibuprofen 400 Mg Tablet PO Q6H PRN Mild Pain (1-3) or Fever Morphine Sulfate 2 mg 10/27/24 10:02 Morphine Sulfate (*Crx) 2 Mg/Ml Inj IV PUSH Q4H PRN Pain Rated 7-10 Ondansetron HCl 4 mg 10/27/24 10:02 Ondansetron Inj 4 Mg/2 Ml Vial IV PUSH Q6H PRN Nausea And Vomiting Radiology Results: ITS Impressions Venous Doppler Study 10/27/24 15:26 IMPRESSION: Negative right lower extremity venous US. No deep vein thrombosis. Aguero's cyst Tibia/Fibula CT 10/27/24 15:45 IMPRESSION: 1. Focal skin thickening and underlying mild subcutaneous edema at the medial aspect of the mid right calf consistent with cellulitis with suggestion of an associated 2 cm central ulceration. No abscess, soft tissue gas or radiopaque foreign bodies. 2. Small Aguero's cyst. Labs Labs: Laboratory Results - last 24 hr 10/28/24 10/28/2410/28/25 06:05 06:05 06:05 WBC 4.7 RBC 3.94 L Hgb 11.6 L Hct 38.1 MCV 96.7 MCH 29.4 MCHC 30.4 L RDW 13.9 Plt Count 183 MPV 10.7 H Sodium 138 Potassium 3.9 Chloride 106 Carbon Dioxide 28 Anion Gap 4 BUN 15 Creatinine 0.66 L 0.68 L Estim Creat Clear Calc 123 120 Estimated GFR > 60 Glucose Calcium 10/28/24 06:05 WBC RBC Hgb Hct MCV MCH MCHC RDW Plt Count MPV Sodium Potassium Chloride Carbon Dioxide Anion Gap BUN Creatinine Estim Creat Clear Calc Estimated GFR > 60 Glucose 85 Calcium 8.5
[2024-10-28] MEDS: HYDROcodone/acetaminophen (*CRX) 5-325 MG TABLET 1 TAB PO (17:40)
[2024-10-28 22:00] VITALS: BP 111/47; PULSE 59; RESP 18; TEMP 36.4; O2SAT 99
[2024-10-29] MEDS: PIPERACILLN/TAZ 3.375GM/NS50ML 3.375 GM/50 ML BAG IVPB ×2 (00:20→05:22)
[2024-10-29] MEDS: VANCOMYCIN 1,500 MG/NS 500 ML 1,500 MG/500 ML BAG 250 MG IVPB (02:07)
[2024-10-29] MEDS: HYDROcodone/acetaminophen (*CRX) 5-325 MG TABLET 1 TAB PO (05:26)
[2024-10-29 06:00] VITALS: BP 116/75; PULSE 53; RESP 16; TEMP 36.6; O2SAT 98
[2024-10-29 07:01] LABS: Estimated CRCL calculation 141 ml/min; Estimated Glomerular Filt Rate > 60
[2024-10-29 08:00] VITALS: O2SAT 98
[2024-10-29] MEDS: COLLAGENASE OINT 30 GM TUBE 1 APPLIC TOPICAL (09:00)
[2024-10-29] MEDS: DOXYCYCLINE HYCLATE 100 MG TABLET PO (12:43)
--- NOTE | 2024-10-29 13:46 | PM.DS ---
DS: Admitting Diagnosis Discharge Date 10/29/24 Admitting Diagnosis Right leg wound DS: Discharge Diagnosis Discharge Diagnosis (1) Leg wound, right: Qualifiers: Encounter type: initial encounter Qualified Code(s): S81.801A - Unspecified open wound, right lower leg, initial encounter Code(s): S81.801A - Unspecified open wound, right lower leg, initial encounter Status: Acute (2) Opioid overdose: Qualifiers: Encounter type: initial encounter Injury intent: accidental or unintentional Qualified Code(s): T40.2X1A - Poisoning by other opioids, accidental (unintentional), initial encounter Code(s): T40.2X1A - Poisoning by other opioids, accidental (unintentional), initial encounter Status: Inactive (3) Cellulitis: Code(s): L03.90 - Cellulitis, unspecified Status: Acute DS: Summary Hospital Course Reason for hospitalization: 34yo female with hx of substance abuse who presented to [facility] with right lower leg wound. She was sent to [place] for further management. Please see H&P for details. Hospital Course: She injected IV drugs into her right leg about 2 weeks ago and has since developed swelling and pain in the right lower leg. She was seen int he ED and treated with clindamycin but with minimal benefit so presented to [facility] ED. She was intoxicated with fentanyl and was difficult to keep awake. She received a dose of Narcan in the ER with improvement. She recently used fentanyl IV prior to the ED visit. She also uses meth per report. In the ED, her vitals were stable and afebrile. She was hypoxic initially which improved after Narcan. CBC was normal. CMP normal except low potassium that was replaced and mildly elevated AST/ALT that improved on repeat. Glucose was 127. Lactate was 1.1 Ethyl alcohol less than 10. EKG with sinus bradycardia with no acute ST-T changes. X-ray tibia-fibula unremarkable. She received a dose of vancomycin and Zosyn and was transferred to [facility] for further treatment. At [place], she was seen by modeling instructor. She was continued on IV abx. UCx negative. BCx NGTD. Wound Cx no growth. Rt LE doppler negative for DVT. CT of the Rt LE showing no abscess, soft tissue gas or foreign body. Patient has an unknown psychiatric disorder. She used to be on psych meds in the past but she does not take that anymore. She has substance abuse and was counseled about the benefits of not using illegal drugs. She was given appropriate educational material. The surrounding erythema around the wound had resolved. The wound is dry. She is s/p hysterectomy. No HIV or hepatitis testing performed here so will defer to outpatient provider. She overall did well. She denies feeling suicidal but felt the overdose was unintentional. She was able to be discharged home on 10/29/24. Status at Discharge Cognitive/behavioral status at discharge: stable Time Spent with Patient Time attestation: Total time spent providing and/or coordinating discharge services: 34 minutes Time spent: Greater than 30 minutes Exam Narrative: AF 97.8 116/75 53 16 98% ra Gen - NARD Chest - CTA bilaterally, nml RR CV - RRR S1/S2 Abd - Soft, NT/ND, Positive BS Ext - No pedal edema Neuro - Alert and oriented. Nonfocal exam. Psych - Nml mood and affect Skin - quarter sized shallow ulcer right distal lower extremity with beefy red base and scant surrounding erythema. DS: Data Data Completed and Pending Labs on day of discharge: Labs from last 24 hours 10/29/24 10/29/24 06:06 01:03 Creatinine 0.57 L Estim Creat Clear Calc 141 Estimated GFR > 60 Vancomycin Trough 10.7 Preliminary micro results at discharge 10/27/24 10:57 Blood Culture - Preliminary Blood 10/27/24 10:45 Blood Culture - Preliminary Blood Discharge Plan Discharge Attending physician on discharge: Erich Beaulieu Discharging Clinician: Erich Beaulieu Anticipated Discharge Date/Time: 10/29/24 14:06 Patient Disposition: Home Activity: as tolerated Diet: regular Discharge Instructions: Wash wound to leg with soap and water daily. Apply Santyl ointment to ulcer once a day and cover with a dry gauze dressing. Once you run out of Santyl, then apply Silver gel which can be bought over the counter and apply it once a day. Please complete your antibiotic course even if you are starting to feel well. Contact your doctor or call 911 and come to the Emergency Room if you have fevers, worsening redness to the skin around the wound or other worrisome symptoms. Avoid illegal drug use. Please make every effort to stop using drugs. Would recommend drug rehab program or at least becoming involved in Drug Anonymous organization. Follow-up with your primary care provider in 1-2 weeks. Please call for appointment. Thank you for using [facility] for your health care needs. Patient Instructions: Antibiotic Form, Heart Failure (GEN) Patient Language: Kenyan Stand Alone Forms: General Discharge Information Follow-up/Referrals: PHYSICIAN,BEHAVIORAL HEALTH CLINICIAN [Primary Care Provider] - Call for Appointment Discharge Medications: New doxycycline hyclate 100 mg Tablet 100 mg PO Q12HR Qty: 9 0RF Santyl 250 unit/gram Ointment 1 applic topical Q12HR Qty: 15 0RF amoxicillin-pot clavulanate 875-125 mg tablet 1 tablet PO Q12H Qty: 9 0RF Continued tramadol 50 mg tablet 50 mg PO Q6H PRN (Reason: pain) Qty: 20 0RF Date of admission: 10/27/24 10:02 Primary Care Provider: PHYSICIAN,BEHAVIORAL HEALTH CLINICIAN Admitting Provider: Venus Fraser Attending physician on admission: Venus Fraser Condition: Stable Hospitalist MIPS Heart Failure (Exclusion) Patient has history of Heart Transplant or Left Ventricular Assistive Device?: No IF YES, STOP HERE Heart Failure (Qualifier) Patient has current or prior documentation of LVEF less than or equal to 40%, or mod/servere depressed LVSF?: No IF NO, STOP HERE
[2024-10-29 14:00] VITALS: BP 122/62; PULSE 56; RESP 14; TEMP 36.3; O2SAT 100
== END 2024-10-29 17:38 | disposition home or self-care (01) | DRG 351 ==
PROVIDERS: Admitting Provider Internal Medicine; Visit Provider Internal Medicine
DX: S81.801A Unspecified open wound, right lower leg, initial encounter (principal); L03.115 Cellulitis of right lower limb; T40.2X1A Poisoning by other opioids, accidental (unintentional), initial encounter; F15.129 Other stimulant abuse with intoxication, unspecified
CPT/HCPCS: 36415; 73701; 80048; 80053; 80202; 81001; 82565; 83036; 83605; 83735; 85025; 85027; 87040; 87086; 93971; 96374; 96375; 99285; A9270; J1650; J2543; J3370; J3373; Q9967

== ENCOUNTER 2024-12-18 18:56 | Emergency (ER) | payer OTHER, SELFPAY ==
[2024-12-18 18:56] VITALS: BP 136/91
[2024-12-18 18:58] VITALS: BP 126/93
[2024-12-18 18:59] VITALS: PULSE 97; RESP 18; TEMP 37.1; O2SAT 97
--- NOTE | 2024-12-18 18:59 | ED.WOUNDLAC ---
HPI - Wound/Laceration General Stated Complaint: Infected iv site from removal on 12/15/24 Time Seen by Provider: 12/18/24 18:58 Source: patient Mode of arrival: ambulatory Limitations: no limitations History of Present Illness HPI narrative: this is a 34-year-old female history of drug abuse I had an IV site on her left forearm and currently has some redness warmth mild tenderness with no fever chills no shortness of breath no nausea vomiting. Onset (ago): day(s) Place: home Related Data Allergies Allergy/AdvReac Type Severity Reaction Status Date / Time latex Allergy Rash Verified 11/21/24 09:35 sulfamethoxazole (From Allergy Rash Verified 11/21/24 09:35 Bactrim) trimethoprim (From Bactrim) Allergy Rash Verified 11/21/24 09:35 Review of Systems Review of Systems: All systems reviewed & are unremarkable except as noted in HPI and below PMFSH Past Medical History Medical History Sciatica of left side Family History Family History Grandparent Diabetes mellitus Father Hypotension Hypertension Social History Social History Social History: smoker, marijuana use Smoking packs per day: 0.5 Smoking cigarettes per day: 10.0 Smoking status: Current every day smoker Tobacco type: cigarettes Second hand tobacco smoke exposure: Yes Alcohol intake: never Substance use: current Substance use type: methamphetamine and other Other substance usage details: fentanyl Last use: 10/27/24 Do You Feel Safe in your Home?: Yes Lack of Transportation: YES Lack of Food: Often True Current Housing: I Do Not Have Housing Concerned About Future Housing: YES Difficulty Paying Gas/Electric Bills: No Difficulty Paying for Meds: YES Currently Unemployed: YES Education: Grade School Difficulty w/ Childcare or Family Care: No Living arrangements: homeless Occupation/Education: unemployed Gender identity (if verbalized by the patient): Female Sexual Orientation (if Verbalized by the Patient): Straight or Heterosexual Spiritual care concerns: No Exam Const: General: healthy appearing Nutritional Appearance: well nourished Orientation/consciousness: patient oriented x3 Limitations: no limitations Neck: Neck: normal visual inspection, no lymphadenopathy and no meningeal signs Chest: Chest palpation & inspection: normal inspection of the chest Resp: Effort & Inspection: normal respiratory effort Auscultation: clear to auscultation bilaterally Cardio: Rate: regular rate Rhythm: regular rhythm GI: GI Palp: Yes Soft to palpation Auscultation: normal bowel sounds Skin: Other: Warmth redness on the left forearm proximally 3cm in diameter it is warm and tender to touch Psych: Mental Status: mental status grossly normal Course Course Emergency Course: dose of IM ceftriaxone administered, will be sending antibiotics patient's local pharmacy. Critical Care Time Critical Care Time Critical Care Time: No Discharge Plan Discharge Clinical Impression: Cellulitis Qualifiers: Site of cellulitis: extremity Site of cellulitis of extremity: upper extremity Laterality: left Qualified Code(s): L03.114 - Cellulitis of left upper limb Patient Disposition: Home Condition: Stable Instructions: Antibiotic Form, Cellulitis (ED) Additional Instructions: advised patient to take medication as prescribed and follow-up with primary care physician within 1 week if symptoms persist or worsen. Patient Language: Gambian Prescriptions: New amoxicillin-pot clavulanate [Augmentin] 500-125 mg tablet 1 tablet PO TID Qty: 30 0RF No Action Caplyta 42 mg capsule 42 mg PO DAILY Qty: 90 0RF prazosin 1 mg capsule 1 mg PO QHS Qty: 90 0RF meloxicam 15 mg tablet 15 mg PO DAILY Qty: 30 0RF doxycycline hyclate 100 mg tablet 100 mg PO Q12H Qty: 10 0RF amoxicillin-pot clavulanate 875-125 mg tablet 1 tablet PO BID Qty: 10 0RF gabapentin 300 mg capsule 300 mg PO BID Qty: 180 0RF Follow-up/Referrals: Murali Braden DO [Primary Care Provider, [facility]] Time of Disposition: 19:02
--- OUTSIDE RECORDS SUMMARY | 2024-12-18 19:05 | XMS_ITS | Clinical Summary ---
Author Organization [facility] Address [address] [place] [id number] Care Team Providers Care Cnc Machine Programmer Name Role Phone Merle Diaz NP Primary Care Provider [phone]- [phone] Allergies Active Allergy Reactions Criticality Noted Date Comments Latex Hives,Rash Low 12/26/2020 Pecan Nut (Diagnostic) Throat swelling High 12/27/19 21 Sulfamethoxazole-Trimethoprim Hives Medium 2020 Trimethoprim Hives Medium 12/26/2020 Black [place] ([employer]) Throat swelling High 12/26/2020 Medications clonazePAM 1 MG tablet Take 1 mg by mouth 3 (three) times a day. Active buPROPion XL 300 MG 24 hr tablet 04/01/2021 Active prazosin 2 MG capsule Take 4 mg by mouth nightly at bedtime. 04/01/2021 Active Active Problems Problem Noted Date Diagnosed Date Fecal impaction ([facility]) 03/05/2020 Carpal tunnel syndrome, bilateral upper limbs Constipation 06/21/2019 Chronic GERD 01/23/2019 Blood in stool 01/23/2019 Oropharyngeal dysphagia 01/23/2019 Hidradenitis suppurativa 09/24/2018 Asthma ([facility]) 08/29/2018 History of GI bleed 08/29/2018 Psoriasis 08/29/2018 Anemia 08/29/2018 Anxiety and depression 08/29/2018 Hyperactivity disorder 08/29/2018 Bipolar disorder ([facility]) 08/29/2018 Body image disturbance 08/29/2018 Schizophrenia ([facility]) 08/29/2018 History of suicidal ideation 08/29/2018 Resolved Problems Problem Noted Date Diagnosed Date Resolved Date Encounter for screening colonoscopy 06/11/2019 06/19/2019 Overview (06/11/2019): Added automatically from request for surgery [id number] Chronic bacterial skin infection 08/30/2018 10/02/2018 Right foot pain 12/07/2016 08/29/2018 Encounter for preventive health examination 12/06/2016 08/29/2018 Immunizations Immunization Administration Dates Next Due Afluria 36 MONTHS+ (Prefille d Syringe IIV4) 06/24/2019,06/22/2019() Dtp 10/30/1994, 3,09/30/1991,1990,1990 Fluzone 6 Months+ Quad (0.5 mL Prefilled Syringe) 03/06/2020 HPV4 (Gardasil) 07/07/2008,05/07/2008 Hepatitis A (Generic) 07/07/2008 Hepatitis B Pediatric 06/22/1998,12/29/1997,07/1997 Hib 11/02/1992,09/30/1991,01/03/1991 MMR 10/30/1994,09/30/1991 Opv 10/30/1994, 3,09/30/1991,1990,1990 Td 11/08/2004 Tdap (Generic) 10/31/2020,05/06/2019,09/10/2013 Family History [...] Paying Living Expenses Somewhat [address] 06/21/2019 [facility] of Occupat ional Health - Occupational Stress [...] AM CDT Legal Sex Female 9:22 PM ASSOCIATE PROFESSOR OF MEDICINE Gender Identity Female 08/29/2018 9:19 AM CDT Sexual Orientation Not on file Last Filed Vital Signs Vital Sign Reading Time Taken Comments Blood Pressure 118/74 05/05/2021 2:25 PM ASSOCIATE PROFESSOR OF MEDICINE Pulse 68 05/05/2021 2:25 PM ASSOCIATE PROFESSOR OF MEDICINE Temperature 37.4 C (99.3 F) 05/04/2021 10:46 PM ASSOCIATE PROFESSOR OF MEDICINE Respiratory Rate 19 05/05/2021 2:25 PM ASSOCIATE PROFESSOR OF MEDICINE Oxygen Saturation 99% 05/05/2021 2:25 PM ASSOCIATE PROFESSOR OF MEDICINE Inhaled Oxygen Concentration - - Weight 109.9 kg (242 lb 4.6 oz) 01/05/2 022 10:46 PM ASSOCIATE PROFESSOR OF MEDICINE Height 167.6 cm (5' 6) 05/04/2021 10:4 6 PM ASSOCIATE PROFESSOR OF MEDICINE Body Mass Index 39.11 05/04/2021 10:46 PM ASSOCIATE PROFESSOR OF MEDICINE Plan of Treatment Health Maintenance Due Date Last Done Comments Annual Physical 1993 Hepatitis C 2008 HPV Vaccines (3 - 3-dose series) 11/04/2008 07/07/2008, 05/07/2008 Pneumococcal Vaccine: Pediatrics (0 to 5 Years) and At-Risk Patients (6 to 49 Years) (1 of 2 - PCV) 2009 COVID-19 Vaccine (1 - 2023- season) 2023 DTaP, Tdap and Td Vaccines (5 - [...] 021 10:46 AM CDT) No Ana Fajardo, MONA Insurance Advance Directives Documents on File Type Date Recorded Patient Catering Coordinator Expl anation Advance Directives and Living Will 01/25/2019 7:37 AM 11/06/14 [place] Advance Directives and Living Will 12/13/2016 POWER OF PAINT MIXER HAND FO R HEALTH CARE Advance Directives and Living Will 12/13/2016 SHORT FORM POWER OF PAINT MIXER HAND Advance Directives and Living Will 11/06/2014 POWER OF PAINT MIXER HAND FO R HEALTH CARE Advance Directives and Living Will 11/06/2014 SHORT FORM POWER OF PAINT MIXER HAND * Full Code (Latest Code Status on File) Date Activated Date Inactivated Comments 03/05/2020 5:31 AM 03/06/2020 3:23 PM * Full Code Date Activated Date Inactivated Comments 06/21/2019 11:11 PM 06/25/2019 11:26 AM Care Teams Cnc Machine Programmer Relationship Specialty Start Date End Date Merle Diaz NP PCP - General Nurse Practitioner Family 03/05/20
--- OUTSIDE RECORDS SUMMARY | 2024-12-18 19:05 | XMS_ITS | Encounter Summary ---
Author Organization [facility] Address Formerly [facility] [place] [address] Care Team Providers Care Pants Closer Name Role Phone Merle Diaz JEANINE Primary Care Provider +1- [phone] Encounter Details Date Type Department Care Team (Late st Contact Info) Description 07/14/2020 Hospital Follow-up Call [place] [address] [place] [address] Opal Mendoza RN Social History [...] Family Three times a week 06/21/2019 Attends Jewish Services Never 06/21 Active Member of Clubs [...] Paying Living Expenses Somewhat [address] 06/21/2019 Citizen Of [place] of Occupat ional Health - Occupational Stress [...] AM CDT Legal 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 Answer Date of Assessment Author Status No 07/13/2020 12:05 AM LARAT Dominique, Jocelin L, RN Active documented as of this encounter [...] General On track( 021 10:46 AM CDT) Ana Mahoney RN documented as of this encounter Visit Diagnoses Not on filedocumented in this encounter Care Teams Pants Closer Relationship Specialty Start Date End Date Merle Diaz NP PCP - General Nurse Practitioner Family 03/05/20 documented as of this encounter
--- OUTSIDE RECORDS SUMMARY | 2024-12-18 19:05 | XMS_ITS | Clinical Summary ---
Author Organization [facility] Address [address] [place] [address] Phone Care Team Providers Care Worm Sorter Name Role Phone Provider, Unknown Primary Care [...] 1:11 PM CDT Height 167.6 cm (5' 6) 02/06/2018 1:11 PM CDT Body Mass Index 52.13 02/06/2018 1:11 PM CDT Plan of Treatment Health Maintenance Due Date Last Done Comments Hepatitis C Virus (HCV) Screening 1990 Human Papillomavirus (HPV) Immunization (3 - 3-dose series) 11/04/2008 07/07/2008, 05/07/2008 SARS-COV-2 Immunization ( season) 2023 Influenza Immunization (#1) 2024 Respiratory Syncytial Virus (RSV) Immunization (Adult) (1 [...] patient's age to complete this topic [place] [address] MEDICAID [employer] [facility] Care Teams Worm Sorter Relationship Specialty Start Date End Date Provider, Unknown UNKNOWN PCP - General 02/06/18
--- OUTSIDE RECORDS SUMMARY | 2024-12-18 19:05 | XMS_ITS | Encounter Summary ---
Author Organization [facility] Address [facility] [place] [address] Care Team Providers Care Petroleum Refining Firer Name Role Phone Merle Diaz JEANINE Primary Care Provider [phone] Encounter Details Date Type Department Care Team (Late st Contact Info) Description 03/08/2020 Hospital Follow-up Call [facility] [address] [place] [address] Opal Mendoza RN Social History [...] Family Three times a week 06/21/2019 Attends Baptism Services Never 06/21 Active Member of Clubs [...] Paying Living Expenses Somewhat [address] 06/21/2019 [employer] [place] [employer] [facility] - Occupational Stress [...] AM CDT Legal Sex Female 9:[address]PERVISOR Gender Identity Female 08/29/2018 9:19 AM CDT Sexual Orientation Not on file COVID-19 Exposure Response Date Recorded In the last month, have you been in contact with someone who was confirmed or suspected to have Coronavirus / COVID-19? No / Unsure 03/05/2020 12:[address] SUPERVISOR documented as of this encounter Functional Status * RETIRED Are you deaf or do you have serious difficulty hearing Answer Date of Assessment Author Status No 03/05/2020 5:[address] SUPERVISOR Activ e * RETIRED Are you blind or do you have serious difficulty seeing, even when wearing glasses? Answer Date of Assessment Author Status No 03/05/2020 5:[address] SUPERVISOR Activ e * Do you have serious difficulty walking or climbing stairs? Answer Date of Assessment Author Status No 03/05/2020 5:[address]PERVISOR Cherise Cardenas RN Active * Do you [...] on filedocumented in this encounter Care Teams Petroleum Refining Firer Relationship Specialty Start Date End Date Merle Diaz NP PCP - General Nurse Practitioner Family 03/05/20 documented as of this encounter
--- OUTSIDE RECORDS SUMMARY | 2024-12-18 19:06 | XMS_ITS | Encounter Summary ---
Author Organization [facility] Address [facility] [place] [address] Care Team Providers Care Spray Machine Operator Name Role Phone Abelardo Sinclair MD Primary Care Provider [phone] Rashi Martínez MD Primary Care Provider [phone] Merle Diaz NP Primary Care Provider + [phone] Encounter Details Date Type Department Care Team (Late st Contact Info) Description 07/14/2017 Abstract [facility] CONVERSION [address] [place] [address] , Generic ConversionMD Social History Tobacco Use Types Packs/Day Years Used Date Smoking Tobacco: Never Assessed Comments Unknown Sex and Gender Information Value Date Recorded Sex Assigned at Female 08/29/2018 9:19 AM CDT 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
--- OUTSIDE RECORDS SUMMARY | 2024-12-18 19:06 | XMS_ITS | Encounter Summary ---
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
[2024-12-18] MEDS: cefTRIAXone 1 GM, LIDOCAINE 1% LOCAL INJ 2.1 ML IM (19:15)
== END 2024-12-18 19:31 | disposition home or self-care (01) ==
LOC: CHSED 19:04
PROVIDERS: Emergency Provider Emergency Medicine; PCP Family Medicine
DX: L03.114 Cellulitis of left upper limb (principal); T80.29XA Infection following other infusion, transfusion and therapeutic injection, initial encounter; F17.210 Nicotine dependence, cigarettes, uncomplicated
CPT/HCPCS: 96372; 99283; J0696; J2003